=== PATIENT | female | born 1965 | race Caucasian/White ===

== ENCOUNTER 2021-10-17 22:39 | Inpatient (IN) | payer OTHER ==
[~2021-10-17] VITALS: Ht 165.1 cm; Wt 98.0 kg
[2021-10-17] MEDS ORDERED: SODIUM CHLORIDE 0.9% 1,000 ML IV ONE (23:15)
[2021-10-17 23:38] LABS: CHLORIDE 107 mEq/L (98-107)
[2021-10-17 23:41] LABS: HEMATOCRIT. 35.1 % (36.0-48.0); MEAN CORPUSCULAR HEMOGLOBIN 39.4 pg (28.0-32.0); MEAN CORPUSCULAR VOLUME 114.8 fL (81.0-99.0); MEAN PLATELET VOLUME 11.1 fl (7.4-10.4); RED BLOOD CELL COUNT 3.05 mill/uL (4.2-5.4); RED CELL DISTRIBUTION WIDTH 17.4 % (11.6-14.6)
[2021-10-17 23:49] LABS: PLATELET 47 x1000/uL (130-400)
[2021-10-18] MEDS ORDERED: CLINDAMYCIN 600MG PREMIX 50 ML IV SCH (00:15)
[2021-10-18] MEDS ORDERED: SODIUM CHLORIDE 0.9% 1000ML BAG (SEPSIS BOLUS) IV ONE (00:15)
[2021-10-18] MEDS ORDERED: NOREPINEPHRINE 8MG/250ML PMX 250 ML IV STA (02:39)
[2021-10-18] MEDS ORDERED: DEXT 10% WATER 1,000 ML IV ONE (02:45)
[2021-10-18] MEDS ORDERED: DEXTROSE 50% WATER 50ML SYRINGE IV SCH (02:45)
[2021-10-18 04:55] LABS: INR 2.4; PROTHROMBIN TIME 24.3 sec (9.6-11.0)
[2021-10-18 05:12] LABS: NUCLEATED RED BLOOD CELLS 5 /100 WBC; PLATELET ESTIMATE DECREASED
[2021-10-18] MEDS ORDERED: MIDAZOLAM 100MG/100ML PREMIX IV PRN (06:45)
[2021-10-18] MEDS ORDERED: PROPOFOL 10MG/ML 100ML 100 ML IV ONE (06:45)
[2021-10-18] MEDS ORDERED: MIDAZOLAM HCL 50 MG in DEXTROSE 5% WATER 40 ML IV ONE (06:45)
[2021-10-18 07:00] VITALS: BP 144/122
[2021-10-18] MEDS ORDERED: MAGNESIUM/ALUMINUM HYDROXIDE/SIMETHICONE 30ML UDC PO PRN (08:00)
[2021-10-18] MEDS ORDERED: ENOXAPARIN 40MG/0.4ML SYR SUBCUT SCH (08:00)
[2021-10-18] MEDS ORDERED: CLONIDINE 0.1MG TABLET PO PRN (08:00)
[2021-10-18] MEDS ORDERED: ACETAMINOPHEN 325MG TABLET PO PRN ×2 (08:00)
[2021-10-18] MEDS ORDERED: DEXT 5%/0.45% NACL 1000ML 1,000 ML IV SCH (08:00)
[2021-10-18] MEDS ORDERED: GUAIFENESIN 200MG/10ML SUGAR FREE UDC PO PRN (08:00)
[2021-10-18] MEDS ORDERED: ONDANSETRON HCL 4MG/2ML INJ IV PRN (08:00)
== END 2021-10-18 09:31 | DRG 871 ==
LOC: ER 22:39 → MICUSO 10-18 02:41
PROVIDERS: ADMIT Internal Medicine; ATTEND Internal Medicine
PROC: 5A12012 Performance of Cardiac Output, Single, Manual (ICD-10-PCS; principal; 2021-10-18)
PROC: 0BH17EZ Insertion of Endotracheal Airway into Trachea, Via Natural or Artificial Opening (ICD-10-PCS; 2021-10-18)
PROC: 5A1935Z Respiratory Ventilation, Less than 24 Consecutive Hours (ICD-10-PCS; 2021-10-18)
PROC: 05JY3ZZ Inspection of Upper Vein, Percutaneous Approach (ICD-10-PCS; 2021-10-18)
PROC: 06JY3ZZ Inspection of Lower Vein, Percutaneous Approach (ICD-10-PCS; 2021-10-18)
PROC: B54BZZA Ultrasonography of Right Lower Extremity Veins, Guidance (ICD-10-PCS; 2021-10-18)
PROC: B54MZZA Ultrasonography of Right Upper Extremity Veins, Guidance (ICD-10-PCS; 2021-10-18)
DX: A41.9 Sepsis, unspecified organism (principal); E43 Unspecified severe protein-calorie malnutrition; J96.00 Acute respiratory failure, unspecified whether with hypoxia or hypercapnia; R65.21 Severe sepsis with septic shock; J18.9 Pneumonia, unspecified organism; D68.9 Coagulation defect, unspecified; G93.1 Anoxic brain damage, not elsewhere classified; N17.9 Acute kidney failure, unspecified; D69.6 Thrombocytopenia, unspecified; I46.9 Cardiac arrest, cause unspecified; E16.2 Hypoglycemia, unspecified; D72.819 Decreased white blood cell count, unspecified; K74.60 Unspecified cirrhosis of liver; Z20.822 Contact with and (suspected) exposure to COVID-19; Z68.36 Body mass index [BMI] 36.0-36.9, adult
CPT/HCPCS: 36415; 71045; 74176; 80053; 82962; 83605; 83880; 84145; 84484; 85025; 87077; 87186; 87426; 93005; 94002; 94003; 99291; J2250; J3490; J7030; J7060; A4315